=== PATIENT | male | born 1985 | race Caucasian/White ===

== ENCOUNTER 2019-04-29 14:45 | Outpatient (REF) | payer OTHER, SELFPAY ==
[2019-05-01 13:01] LABS: Hepatitis C Ab w Rflx HCV PCR Negative (NEGAT)
[2019-05-01 13:18] LABS: HIV-1/2 Ag & Ab Screen Negative (NEGAT)
[2019-05-01 13:49] LABS: Syphilis Serology (RPR) Negative (Negative)
[2019-05-01 13:53] LABS: Chlamydia Result Negative; GC Result Negative; Specimen Description URINE
== END 2019-04-29 15:05 ==
LOC: NCHCN 14:45
PROVIDERS: PCP Family Medicine; Visit Provider Family Medicine
DX: Z00.00 Encounter for general adult medical examination without abnormal findings (principal); Z11.3 Encounter for screening for infections with a predominantly sexual mode of transmission; Z11.4 Encounter for screening for human immunodeficiency virus [HIV]; Z11.59 Encounter for screening for other viral diseases
CPT/HCPCS: 86803; 87389; 87491; 87591; 86592

== ENCOUNTER 2020-05-20 13:31 | Outpatient (REF) | payer OTHER, SELFPAY ==
[2020-05-25 02:02] LABS: SARS-CoV-2 RNA Undetected (Undetected); SARS-CoV-2 Specimen Source Nasal
== END 2020-05-20 13:51 ==
LOC: NCHCN 13:31
PROVIDERS: PCP Family Medicine; Visit Provider Family Medicine
DX: Z20.828 Contact with and (suspected) exposure to other viral communicable diseases (principal)
CPT/HCPCS: U0003

== ENCOUNTER 2024-03-13 13:09 | Outpatient (REF) | payer OTHER, SELFPAY ==
[2024-03-13 15:04] LABS: ALT 56 U/L (16-63); AST 29 U/L (15-37); Alkaline Phosphatase 72 U/L (46-116); BUN 13 mg/dL (7-18); Bilirubin, Total 0.64 mg/dL (0.2-1.0); CREATININE 1.1 mg/dL (0.70-1.30); Calcium 9.1 mg/dL (8.5-10.1); Calculated LDL 129 mg/dL (<100); Chloride 103 mmol/L (98-107); Cholesterol 189 mg/dL (<200); Estimated GFR 88.67 (mL/min/1.73m2); Glucose 85 mg/dL (74-106); HDL Cholesterol 46 mg/dL (40-60); Sodium 138 mmol/L (136-145); Total Protein 7.3 g/dL (6.4-8.2); Triglyceride 74 mg/dL (<150)
== END 2024-03-13 13:10 | disposition home or self-care (01) ==
LOC: NCHCN 13:09
PROVIDERS: PCP Family Medicine; Visit Provider Family Medicine
DX: Z00.00 Encounter for general adult medical examination without abnormal findings (principal)
CPT/HCPCS: 80053; 80061

== ENCOUNTER 2025-03-26 10:20 | Outpatient (REF) | payer OTHER, SELFPAY ==
[2025-03-26 14:31] LABS: Abs Immature Grans 0.02 10^3/uL (0.0-0.06); HCT 44.0 % (40.0-50.0); HGB 15.0 g/dL (13.5-17.5); Immature Grans % 0.3 %; MCH 28.7 pg (27.0-33.0); MCHC 34.1 % (32.0-36.0); MCV 84 fL (80-95); MPV 9.8 fL (8.0-11.0); Platelet Count 240 10^3/uL (130-400); RBC 5.22 10^6/uL (4.36-5.78); RDW 11.9 % (11.8-14.1); RDW-SD 36.2 fL; WBC 7.17 10^3/uL (4.4-10.8)
[2025-03-26 14:41] LABS: ALT 46 U/L (16-63); AST 26 U/L (15-37); Albumin 4.2 g/dL (3.4-5.0); Alkaline Phosphatase 67 U/L (46-116); Anion Gap 7.3 mmol/L (3-11); BUN 14 mg/dL (7-18); Bilirubin, Total 0.5 mg/dL (0.2-1.0); CO2 26.7 mmol/L (21.0-32.0); Calcium 9.3 mg/dL (8.5-10.1); Chloride 105 mmol/L (98-107); Estimated GFR 98.80 (mL/min/1.73m2); Glucose 99 mg/dL (74-106); Potassium 4.3 mmol/L (3.5-5.1); Sodium 139 mmol/L (136-145); Total Protein 7.4 g/dL (6.4-8.2)
== END 2025-03-26 10:21 | disposition home or self-care (01) ==
LOC: NCHCN 10:20
PROVIDERS: PCP Family Medicine; Visit Provider Family Medicine
DX: Z00.00 Encounter for general adult medical examination without abnormal findings (principal)
CPT/HCPCS: 80053; 85025